=== PATIENT | male | born 1950 | race Caucasian/White ===

== ENCOUNTER 2019-06-21 12:39 | Inpatient (IN) | payer MEDICARE, OTHER ==
[2019-06-21] VITALS (17 sets, daily range): BP systolic 87–180; BP diastolic 58–143
[~2019-06-21] VITALS: Ht 172.7 cm; Wt 87.5 kg
[~2019-06-21 12:39] MED LIST: LISINOPRIL-HCT1 EAC1 PO; LOPRESSOR; LOVASTATIN; NORCO 5-325 TA1 EACH PO
[2019-06-21 13:05] LABS: ABSOLUTE BASOPHILS 0.1 thou/uL (0.0-0.2); ABSOLUTE EOSINOPHILS 0.1 thou/uL (0.0-0.7); ABSOLUTE LYMPHOCYTES 1.8 thou/uL (0.8-5.3); ABSOLUTE MONOCYTES 0.7 thou/uL (0.0-1.2); ABSOLUTE NEUTROPHILS 7.3 thou/uL (1.6-8.1); EOSINOPHILS 0.7 %; HEMATOCRIT 50.1 % (42.0-52.0); HEMOGLOBIN 16.9 gm/dL (14.0-18.0); LYMPHOCYTES 18.4 %; MCH 29.4 pg (26.0-34.0); MCHC 33.7 g/dL (28.0-37.0); MCV 87.2 fL (80.0-100.0); MPV 9.6 fl. (7.2-11.1); NUCLEATED RBCS 0 /100WBC; PLATELET COUNT* 208 thou/uL (150-400); POLYS 72.9 %; RBC 5.75 mil/uL (4.50-6.00)
[2019-06-21] MEDS ORDERED: FLAX SEED OIL1000 MG PO (13:14)
[2019-06-21 13:15] LABS: CALCIUM 9.5 mg/dL (8.5-10.1); CREATININE 1.4 mg/dL (0.6-1.3); POTASSIUM 4.3 mmol/L (3.5-5.1); PROTIME 10.7 Seconds (9.20-11.50)
[2019-06-21] MEDS ORDERED: FISH OIL 1,0001 EAC9 PO (13:15)
[2019-06-21] MEDS ORDERED: VITAMIN D310 MC2 PO (13:15)
[2019-06-21] MEDS ORDERED: ASA81BEC PO (13:15)
[2019-06-21 13:26] LABS: MAGNESIUM 1.6 mg/dL (1.8-2.4); TOTAL BILIRUBIN 1.6 mg/dL (<0.1-1.0); TOTAL PROTEIN 7.6 g/dL (6.4-8.2)
[2019-06-21] MEDS ORDERED: GRAPESEED1 ML PO (15:48)
--- NOTE | 2019-06-21 17:17 | CARD ---
[address] [address] CARDIAC CATH REPORT Name: DAMEONZANECECILLE Gutiérrez Room: [address] ADM IN M.R.#: [id number] Admission: 06/21/19 Attend Phys: Kyle Bai MD, F Discharge: Date of : 54 Report #: [id number] THIS REPORT FOR: //name// cc: Finn Johnson Steve T. DO ~ APPROVED REPORT Study performed: 06/21/2019 13:00:56 Patient Details Patient Status: ED Room #: The patient is a 68 year-old male Event Personnel Kyle Bai Safe And Vault Installer, Brenna Patrick RN Security Trainer, aJn Vazquez RN Security Trainer, Shravan Vega Kramer, Jessie RTR Monitor Procedures Performed Art Access - R femoral artery ATTILA Revasc AMI Total/Sub Single LAD ATTILA Revasc AMI Total/Sub Addl DIAG 1 Hemostasis w/ Angioseal Indication Abnormal ECG, STEMI (>0 to less than or equal to 6 hours), Chest pain Risk Factors Arterial Hypertension, Hypercholesterolemia, Diabetes Admission/Lab Medications/Medications given during procedure Glycoprotein IllbIlla Inhibitors, Heparin Unfract. Procedure Narrative The patient was brought emergently to the Cardiac Catheterization Laboratory and was prepped and draped in a sterile manner. The right femoral was infiltrated with 2% Lidocaine subcutaneous anesthesia. A Bowlus 6 FR sheath was inserted into the right femoral artery. Coronary angiography was performed using coronary diagnostic catheters. The right coronary system was accessed and visualized with a Diagnostic 6 Fr JR 4 catheter. The left coronary system was accessed and visualized with a Diagnostic 6 Fr JL 4 catheter. The left ventricle was accessed and visualized with a Diagnostic 6 Fr Pigtail catheter. Left ventricular/[place] [address] CARDIAC CATH REPORT Name: CECILLE BRADLEY Marla Room: [address] IN [facility]#: [id number] Admission: 06/21/19 Attend Phys: Kyle Bai MD, F Discharge: Date of : 54 Report #: [id number] catheter pullback. Left ventriculogram was performed in AMIN projection. Closure device was deployed with a 6 Fr Angioseal STS 6Fr. The patient tolerated the procedure well and there were no complications associated with the procedure. There was no hematoma. Attempted procedure from the right radial artery. Arterial blood was obtained, but unable to advance guiide wire. Decided to proceed from the right femoral artery. Intraoperative Conscious Sedation Sedation start time: 14:11 Case end Time: 14:39 Fentanyl 50 mcg Versed 2 mg Fluoro Time: 7.7 minutes Dose: DAP 940331 cGycm2 2348 mGy Contrast Type and Amount: Visipaque 215 ml Coronary Angiography The patient's coronary anatomy is right dominant. Diagnostic Cath Left Main 0% stenosis LAD 90% mid stenosis, with a more distal 60% stenosis noted in the mid lad Diagonal 1 100% occluded Circumflex 90% ostial stenosis OM2 60% proximal stenosis Right Coronary 30% mid stenosis R PDA 60% proximal stenosis Ramus small vessel with 90% proximal stenosis noted Left Ventriculography The left ventricular ejection fraction is estimated to be 40-45%. Left ventricular wall motion abnormalities are present. There is 1+ mitral insufficiency. severe hypokinesis noted of the distal anterolateral wall Hemodynamics The aortic pressure is 147/72 mmHg with a mean of 105 mmHg. The left ventricular pressure is 138/10 mmHg with a mean of mmHg. The left ventricular end diastolic pressure is 19 mmHg. There was no gradient across the aortic valve upon pullback. Pullback from the left ventricle to the aorta revealed no gradient across the aortic valve[place] [address] CARDIAC CATH REPORT Name: CECILLE BRADLEY Room: [address] IN [facility]#: [id number] Admission: 06/21/19 Attend Phys: Kyle Bai MD, F Discharge: Date of : 54 Report #: [id number] Anticoagulation was achieved with Heparin. bolus of iv aggrastat given Percutaneous coronary intervention was performed on the first diagnonal branch segment. The lesion stenosis prior to intervention was 100% with MIKE 0 flow. A 6FR XB LAD 3.0 100CM Guide Catheter was used to engage the lm ostium. A IG: BMW 190cm Interventional Guidewire was used to cross the lesion. BALLOON DILATION A Balloon catheter Trek RX 2.5 X 8 was inserted and inflated up to 8.00atm for 15seconds. Repeat angiography revealed the following post-dilatation results: 50% stenosis. IC adenosine given for slow reflow STENT DEPLOYMENT A drug-eluting stent Rg RX Stent 2.5X18mm was inserted and inflated up to 8.00atm for 13seconds. Repeat angiography revealed the following post-stent deployment results: 0% stenosis. Additional Inflation: 8.00atm for 6seconds. Additional Inflation: 9.00atm for 14seconds. A drug- eluting stent Gr RX Stent 2.5 x 8mm was inserted and inflated up to 10 jacinta for 17 seconds and 10 jacinta for 4 seconds. POST STENT DEPLOYMENT BALLOON DILATION 90% stenosis was noted proximal to the stent. A second 8 mm x 2.5 drug eluting stent was placed proximally so that there was minimal overlap between this stent and the more distal stent. Final angiography reveals 0 % stenosis with MIKE 3 flow. PCI Technique Lesion 2 Percutaneous Coronary Intervention was performed on the mid left anterior descending artery segment. Percutaneous coronary intervention was performed on the mid left anterior descending artery segment. The lesion stenosis prior to intervention was 90% with MIKE 3 flow. A 6FR XB LAD 3.0 100CM Guide Catheter was used to engage the left ostium. A IG: BMW 190cm Interventional Guidewire was used to cross the lesion. Balloon Dilation A Balloon catheter Trek RX 2.5 X 8 was inserted and inflated up to 10.00atm for 15seconds. Repeat angiography revealed the following post-dilatation results: 30% stenosis. Stent Deployment A drug-eluting stent Rufus RX Stent 2.66J12mz was inserted and inflated up to 8.00atm for 7seconds. [place] [address] CARDIAC CATH REPORT Name: CECILLE BRADLEY Room: 002-P ADM IN M.Luis Fernando.#: [id number] Admission: 06/21/19 Attend Phys: Kyle Bai MD, F Discharge: Date of : 54 Report #: [id number] following post-stent deployment results: 0% stenosis. Additional Inflation: 12.00atm for 14seconds. Additional Inflation: 15.00atm for 8seconds. Final angiography reveals 0 % stenosis with MIKE 3 flow. Conclusion 1. acute occlusion of the first diagonal branch of the LAD. 2. 90% stenosis of the mid lad and ostial circumflex artery. 3. successful placement of 2 drug eluting stents in the diagonal branch, and one in the mid LAD 4. LVEF 40-45% Recommendations plan elective stenting of the ostium of the circumflex artery at a later date Medications Administered Clopidogrel <ELECTRONICALLY SIGNED> By: Kyle Bai MD, [facility] 06/21/19 1715 14 14Damaricruz Bai MD, FACC /INF
[2019-06-21] MEDS ORDERED: TOPROL XL25 MG PO (19:08)
[2019-06-21] MEDS ORDERED: LIPITOR 40 MG T40 M1 PO (19:08)
--- NOTE | 2019-06-21 19:43 | NUR ---
PATIENT VSS STABLE, PAIN UNDER CONTROL, RIGHT GROIN AND RADIAL SITE C/D/I. PATIENT VERY NON-COMPLIANT WITH MEDICATION AND DIABETES MANAGMENT. EDUCATED ON IMPORTANCE OF TAKING BLOOD PRESSURE MEDICATIONS, CHOLESTEROL, NEW BLOOD THINNER MEDICATION FOR STENTS, AND INFORMED HIM HE WILL MOST LIKELY GO HOME ON DIABETIC MEDICATION AND THAT IT IS EXTREMLY IMPORTANT FOR HIM TO FOLLOW PHYSICIAN ORDERS PER MEDICATION REGIMEN. PATIENT VOICED UNDERSTANDING OF EDUCATION BUT MADE JOKES AT THE SAME TIME. UNSURE OF RECEPTIVENESS TO EDUCATION. BED IN LOWEST POSITION, CALL LIGHT IN REACH, CODING AND REIMBURSEMENT SPECIALIST IN PLACE.
[2019-06-22] VITALS (19 sets, daily range): BP systolic 111–171; BP diastolic 67–99
[2019-06-22 03:04] LABS: HEMATOCRIT 45.2 % (42.0-52.0); HEMOGLOBIN 15.4 gm/dL (14.0-18.0); MCH 29.2 pg (26.0-34.0); MCHC 34.1 g/dL (28.0-37.0); MCV 85.7 fL (80.0-100.0); MPV 9.6 fl. (7.2-11.1); RBC 5.28 mil/uL (4.50-6.00); RDW-CV 14.1 % (10.5-14.5); WBC 11.3 thou/uL (4.0-11.0)
[2019-06-22 03:40] LABS: CALCIUM 9.6 mg/dL (8.5-10.1); CREATININE 1.1 mg/dL (0.6-1.3)
[2019-06-22 04:23] LABS: TROPONIN-I LEVEL 92.8 ng/mL (<0.06)
--- NOTE | 2019-06-22 04:25 | NUR ---
ASSUMED CARE AT 1900H, ON RA THEN PUT ON NC AT 2LPM WHEN PT HAVING CHEST PAIN RATED 4. NITRO PRN GIVEN 2X AND CHEST PAIN RELEAVED, NO CHANGES IN THE MONITOR. NO BLEEDING NOTED. STILL WITH CHEST PAIN RATE OF 1 ONLY. CONTINUE MONITORING AND TOWARD GOALS.
--- NOTE | 2019-06-22 11:32 | NUR ---
ICU rounds: Back to lab technologist tomorrow for another stent. Spoke with . Pt is A&O. Resides at home. Independent. No DME. No hx of HH or SNF. [place] [facility]. Following.
--- NOTE | 2019-06-22 14:32 | H ---
[address] [address] HISTORY AND PHYSICAL Name: CECILLE BRADLEY Room: [address] ADM IN M.R.#: [id number] Admission: 06/21/19 Attend Phys: Kyle Bai MD, F Discharge: Date of : 54 Report #: [id number] THIS REPORT FOR: //name// cc: Finn Johnson Steve T. DO ~ THIS REPORT FOR: //name// CC: Kyle Johnson DO DATE OF SERVICE: 06/21/2019 CARDIOLOGY HISTORY AND PHYSICAL HISTORY OF PRESENT ILLNESS: The patient is a 68-year-old white male who I was asked to see in the Emergency Room after he complained of chest pain. The patient notes when he was 40 years old. He had a heart catheterization in [place] and was told there was no significant heart disease. He is not very active, but today, he was raking leaves, he felt a sharp pain in his chest and his arm, became diaphoretic, nausea and vomited. He had some belching. He denied the pain being related to any trauma. Denied any pain being related to lifting. He has had no recent bleeding, fever or cough. There is no rash. He called the paramedics who brought him to [facility] by ambulance. Here, the pain is still there. He denies exertional dyspnea, palpitations or syncope. PAST MEDICAL HISTORY: Cholecystectomy, hypertension, glucose intolerance, and hyperlipidemia. MEDICATIONS: His medications, which he is not taking this time include lovastatin, lisinopril, metoprolol. He does take an aspirin a day. ALLERGIES: He has no known drug allergies. FAMILY HISTORY: Negative for heart disease. SOCIAL HISTORY: He is . He and his live in [place], [place]. 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 REVIEW OF SYSTEMS: No history of stroke, asthma, liver disease, kidney disease, cancer, psychiatric illness, chronic skin condition. PHYSICAL EXAMINATION: GENERAL: Revealed an elderly male, appeared in no distress. VITAL SIGNS: Blood pressure was 140/80, pulse is 80. HEENT: He was anicteric. Conjunctivae are pink. [place] [address] HISTORY AND PHYSICAL Name: CECILLE BRADLEY Room: [address]#: [id number] Admission: 06/21/19 Attend Phys: Kyle Bai MD, F Discharge: Date of : 54 Report #: [id number] NECK: Veins nondistended. No carotid bruits. CHEST: Clear to auscultation. CARDIOVASCULAR: Regular rate and rhythm, no murmur. ABDOMEN: Soft. EXTREMITIES: Had no edema. Posterior pulse 2+ bilaterally. SKIN: Cool and dry. NEUROLOGIC: Nonfocal. His ECG that was done by the paramedics showed a sinus rhythm with ST segment elevation in leads 1 and aVL. His ECG done stat on arrival to the Emergency Room at [facility] showed a normal sinus rhythm with early repolarization. There is no chest x-ray or lab work available at this time. IMPRESSION AND RECOMMENDATIONS: 1. Possible acute coronary syndrome. Recommend urgent cardiac catheterization. 2. Hypertension. The patient takes lisinopril, metoprolol as needed. 3. Hyperlipidemia. The patient is not taking a statin drug at this time. 4. Glucose intolerance. <ELECTRONICALLY SIGNED> By: Kyle Bai MD, FACC 06/22/19 1432 1323 [id number] Bai MD, FACC /nt
--- NOTE | 2019-06-22 14:52 | NUR ---
PATIENT REMAINS A&O X 4, PLEASANT AND COOPERATIVE WITH CARES. DENIES PAIN, CP, OR SOA. LEFT GROING SITE WITH BRUISING BUT NO HEMATOMA OR BRUIE. RIGHT RADIAL SITE C/D/I. GOOD APPETITE. ADEQUATE URINE OUTPUT. ORDER RECEIVED FOR TELE. PLAN FOR ANOTHER STENT IN THE AM AROUND [address] SEYMOUR. NO FURTHER CONCERNS AT THIS TIME. WILL CONTINUE TO MONITOR AND CARE PER PLAN OF CARE.
[2019-06-23] VITALS (14 sets, daily range): BP systolic 112–147; BP diastolic 68–93
[2019-06-23 02:06] LABS: GLYCOHEMOGLOBIN (HGB A1C) 10.8 % (4.8-5.6)
--- NOTE | 2019-06-23 06:15 | NUR ---
PATIENT SLEPT MOST OF THE NIGHT. IV REMAINS SALINE LOCKED. PATIENT HAS BEEN NPO FOR CARDIAC CATH TODAY. PATIENT HAD NO COMPLAINTS OF CHEST PAIN. WILL CONTINUE TO MONITOR.
--- NOTE | 2019-06-23 11:10 | CARD ---
[address] [address] CARDIAC CATH REPORT Name: CECILLE BRADLEY Marla Room: [place] [address] ADM IN .R.#: [id number] Admission: 06/21/19 Attend Phys: Kyle Bai MD, F Discharge: Date of : 54 Report #: [id number] THIS REPORT FOR: //name// cc: Finn Johnson Steve T. DO ~ APPROVED REPORT Study performed: 06/23/2019 08:38:07 Patient Details Patient Status: In-Patient Room #: The patient is a 68 year-old male Event Personnel Kyle Bai Property Staff Accountant, Brenna Patrick RN RN, Jan Vazquez RN RN, Shravan Vega Kramer, Jessie RTR Monitor Procedures Performed Art Access - L femoral artery Coronary Angiography Only ATTILA Place w/wo Plasty Single CIRC Hemostasis w/ Angioseal Indication STEMI , Chest pain Risk Factors Arterial Hypertension, Hypercholesterolemia, Diabetes Previous Procedures/Diagnoses Previous PCI, Previous AR Admission/Lab Medications/Medications given during procedure Heparin Unfract. Procedure Narrative The patient was brought electively to the Cardiac Catheterization Laboratory and was prepped and draped in a sterile manner. The left femoral was infiltrated with 2% Lidocaine subcutaneous anesthesia. A Chapin 6 FR sheath was inserted into the left femoral artery. Coronary angiography was performed using coronary diagnostic catheters. The left coronary system was accessed and visualized with a Guide 6F XB LAD 3.5 catheter. Closure device was deployed with a 6 Fr Angioseal STS 6Fr. The patient tolerated the procedure well and there were no complications associated with the procedure. [place] [address] CARDIAC CATH REPORT Name: CECILLE BRADLEY Room: [address] IN [facility]#: [id number] Admission: 06/21/19 Attend Phys: Kyle Bai MD, F Discharge: Date of : 54 Report #: [id number] Intraoperative Conscious Sedation Sedation start time: 09:34 Case end Time: 10:15 Fentanyl 50 mcg Versed 2 mg Fluoro Time: 4.5 minutes Dose: DAP 82152 cGycm2 1042 mGy Contrast Type and Amount: Visipaque 130 ml Coronary Angiography The patient's coronary anatomy is right dominant. Diagnostic Cath Left Main 0% stenosis LAD stent in mid lad had 0% stenosis Diagonal 1 stents in mid diagonal had 0% stenosis Circumflex 90% ostial stenosis noted OM2 60% proximal stenosis noted Right Coronary not visualized on this study Ramus small vessel with 80% proximal stenosis Left Ventriculography Left Ventriculography was not performed. Hemodynamics The aortic pressure is 114/63 mmHg with a mean of 88 mmHg. PCI Technique Lesion Anticoagulation was achieved with Heparin. Patient was preloaded with Plavix. Percutaneous coronary intervention was performed on the proximal circumflex artery segment. The lesion stenosis prior to intervention was 90% with MIKE 3 flow. A 6F XB LAD 3.5 Guide Catheter was used to engage the left ostium. A IG: BMW 190cm Interventional Guidewire was used to cross the lesion. BALLOON DILATION A Balloon catheter Trek RX 3.0 X 8 was inserted and inflated up to 14.00atm for 17seconds. Repeat angiography revealed the following post-dilatation results: 40% stenosis. Additional Inflation: 10.00atm for 7seconds. Second BMW guide wire was placed in the LAD to protect the vessel during PTCA of the circumflex artery as it arose from the left main artery. STENT DEPLOYMENT A drug-eluting stent Ripley RX Stent 3.5X12mm [place] [address] CARDIAC CATH REPORT Name: CECILLE BRADLEY Room: [address] IN [facility].#: [id number] Admission: 06/21/19 Attend Phys: Kyle Bai MD, F Discharge: Date of : 54 Report #: [id number] inflated up to 10.00atm for 12seconds. Repeat angiography revealed the following post-stent deployment results: 0% stenosis. Additional Inflation: 14.00atm for 19seconds. Additional Inflation: 17.00atm for 14seconds. Final angiography reveals 0 % stenosis with MIKE 3 flow. Conclusion 1. no restenosis of stents in the LAD and first diagonal branch 2. 90% stenosis of the ostium of the circumflex artery 3. successful placement of a drug eluting stent in the ostium of the circumflex artery. Recommendations Cardiac Rehabilitation Referral Aggressive Medical Therapy <ELECTRONICALLY SIGNED> By: Kyle Bai MD, [facility] 06/23/19 1109 1109 [id number] Bai MD, FAC /INF
[2019-06-23 12:44] LABS: CHOLESTEROL 198 mg/dL (<200); HDL CHOLESTEROL 44 mg/dL (>40); LDL CHOLESTEROL 143 mg/dL (<100); SERUM ASSESSMENT Clear; TC:HDL 4.5 Ratio (Not establshd); TRIGLYCERIDE 59 mg/dL (<150); VLDL 12 mg/dL (<40)
--- NOTE | 2019-06-23 12:44 | EKG ---
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 06/23/19 1242 1232 1232 Kyle Bai MD, [facility] /EPI
[2019-06-24] VITALS: BP 144/87
[2019-06-24 04:00] VITALS: BP 135/80
[2019-06-24 04:51] LABS: HEMATOCRIT 40.2 % (42.0-52.0); HEMOGLOBIN 13.7 gm/dL (14.0-18.0); MCH 29.3 pg (26.0-34.0); MCHC 34.1 g/dL (28.0-37.0); MCV 85.9 fL (80.0-100.0); MPV 9.5 fl. (7.2-11.1); RBC 4.68 mil/uL (4.50-6.00); RDW-CV 13.5 % (10.5-14.5); WBC 8.3 thou/uL (4.0-11.0)
[2019-06-24 04:58] LABS: CALCIUM 7.9 mg/dL (8.5-10.1); POTASSIUM 3.7 mmol/L (3.5-5.1)
--- NOTE | 2019-06-24 07:46 | NUR ---
PATIENT SLEPT MOST OF THE NIGHT. LEFT GROIN SITE FROM CARDIAC CATH YESTERDAY HAS A LARGE HEMATOMA AND IS BRUISED SITE IS OUTLINED IN MARKER. DRESSING WAS CHANGED LAST NIGHT AND REMAINS DRY AND INTACT. IV REMAINS SALINE LOCKED. PATIENT COULD POSSIBLY GOING HOME TODAY. WILL CONTINUE TO MONITOR.
--- NOTE | 2019-06-24 08:46 | D ---
[address] [address] DISCHARGE SUMMARY Name: CECILLE BRADLEY Room: [place] [address] ADM IN M.R.#: [id number] Admission: 06/21/19 Attend Phys: Kyle Bai MD, F Discharge: Date of : 54 Report #: [id number] THIS REPORT FOR: //name// cc: Finn Johnson Steve T. DO ~ THIS REPORT FOR: //name// CC: Kyle Johnson DO DATE OF SERVICE: 06/24/2019 DISCHARGE DIAGNOSES: 1. Acute lateral ST segment elevation myocardial infarction. 2. Coronary artery disease. 3. Hypertension. 4. Diabetes. 5. Hyperlipidemia. 6. Left groin hematoma. PROCEDURES: 1. Emergent left heart catheterization with placement of drug-eluting stents in the diagonal and LAD artery via the femoral approach. 2. Left heart catheterization with placement of a drug-eluting stent in the circumflex artery via the left femoral approach. HISTORY OF PRESENT ILLNESS: The patient is a 68-year-old white male who came to the Emergency Room complaining of shortness of breath. The patient has no previous history of heart disease. On the day of admission, he was out raking leaves, he felt a pain in his chest, became diaphoretic, nauseated and vomited. He had no recent fever, cough, or bleeding. He called the paramedics who brought him here to [facility] by ambulance. On arrival here, he continued to have chest pain. I saw him on an emergent basis. PAST MEDICAL HISTORY: Significant for cholecystectomy, hypertension, diabetes, and hyperlipidemia. MEDICATIONS: His medications in the past included lovastatin, lisinopril, metoprolol, and aspirin a day, although he notes he is not taking any medications at this time. ALLERGIES: He has no known drug allergies. PHYSICAL EXAMINATION: VITAL SIGNS: On admission, blood pressure of 140/80 [place] [address] DISCHARGE SUMMARY Name: CECILLE BRADLEY Marla Room: [address] IN [facility].#: [id number] Admission: 06/21/19 Attend Phys: Kyle Bai MD, F Discharge: Date of : 54 Report #: [id number] CHEST: Clear to auscultation. CARDIAC: Regular rate and rhythm. ABDOMEN: Soft. EXTREMITIES: Had no edema. DIAGNOSTIC DATA: ECG showed sinus rhythm, ST segment elevation in 1 and aVL consistent with a high lateral ST segment elevation myocardial infarction. His chest x-ray on admission showed normal heart size, clear lung marte. LABORATORY DATA: Sodium 139, potassium 4.3, BUN 19, creatinine 1.4, and glucose is 415. His liver function studies were normal. Troponin on admission was 0.06. His cholesterol 198, triglycerides 59, HDL 44, LDL 143, glycosylated hemoglobin A1c was 10.8. His white blood cell count was 10.0 and hemoglobin 16.9. HOSPITAL COURSE: The patient was taken urgently to the cardiac catheterization lab with evidence of a lateral ST elevation myocardial infarction. The procedure was performed from the right femoral artery. Results showed an acute occlusion of the medium-sized first diagonal branch of the LAD. There was a 90% narrowing of the mid LAD. There was also 90% narrowing of the ostium of the circumflex artery. The right coronary had no significant disease. Ejection fraction of 40-45%. He was then given heparin and Integrilin. I placed drug-eluting stents in the diagonal artery and LAD. He had no significant chest pain at that time. He had no significant hematoma in the right groin. He developed no heart failure or arrhythmias. He began to ambulate, had no further complaints. He was transferred out of the ICU. He was taken back to the cardiac catheterization lab 2 days later, on 06/22, and I electively placed a drug-eluting stent in the ostium of the circumflex artery. This was performed from the left femoral artery since he previously had an Angio-Seal in the right femoral artery. The procedure had no complications. However, after the procedure, he did develop a hematoma in the left groin area. Prior to discharge, he was ambulating, he had no further chest pain, shortness of breath, or arrhythmias. Prior to discharge, he did undergo an ultrasound of the left femoral hematoma to make sure there was no pseudoaneurysm or AV fistula. At the time of discharge, the patient's blood pressure was 130/80, pulse was 80, he was afebrile, and he remained in sinus rhythm. At the time of discharge, his fasting blood sugar was 203. Followup creatinine following the procedure was 1.0. His peak troponin was 112. Followup hemoglobin was 13.7. The patient was discharged on the following medications: Aspirin 81 mg a day and Lipitor 40 mg a day aiming for an LDL less than 70. He was to continue vitamin D and flaxseed oil. He was started on glyburide 5 mg a day for his diabetes. He was started back on lisinopril/HCTZ 12.5/20 mg a day, metoprolol succinate 25 mg twice a day, omega 3 fatty acids and he was given Plavix 75 mg a day, which he would take for up to 1 year following placement of drug-eluting stents. He was given a prescription for nitroglycerin [place] [address] DISCHARGE SUMMARY Name: CECILLE BRADLEY Room: [address] IN R.#: [id number] Admission: 06/21/19 Attend Phys: Kyle Bai MD, F Discharge: Date of : 54 Report #: [id number] chest pain. He was discharged to return to the care of Dr. Johnson for management of his diabetes. I did recommend he enroll with cardiac rehabilitation here at [facility]. I recommend he start an exercise program. He was to contact my office if he had recurrent chest pain, shortness of breath, or bleeding. He is scheduled to return to see my nurse practitioner in 1 week. I plan on seeing him in Cardiology Clinic in 8 weeks for followup. Followup ECG at the time of discharge showed a sinus rhythm with Q-waves in 1 and aVL. <ELECTRONICALLY SIGNED> By: Kyle Bai MD, FACC 06/24/19 0846 0811 [id number] Bai MD, FACC /nt
--- NOTE | 2019-06-24 09:57 | EKG ---
[place] [address] ELECTROCARDIOGRAM REPORT Name: CECILLE BRADLEY Room: [place] [address] ADM IN .R.#: [id number] Admission: 06/21/19 Attend Phys: Kyle Bai MD Discharge: Date of : 54 Date of Service: 06/24/19805 Report #: [id number] THIS REPORT FOR: //name// [facility] Test Date: 2019-06-24 Test Time: 08:06:30 Pat Name: CECILLE BRADLEY Department: Room: [place] [address] Gender: M Launch Manager: H : 1950 Requested By: Kyle Bai Order Number: [id number] Sheryl MD: Kyle Bai Measurements Intervals [place] Rate: 82 P: 36 TN: 141 QRS: 50 QRSD: 103 T: 85 QT: 391 QTc: 457 Interpretive Statements Sinus rhythm early repolarization Compared to ECG 06/23/2019 12:32:58 no change Electronically Signed On 06-24-2019 9:56:29 CDT by Kyle Bai [email or web address] <ELECTRONICALLY SIGNED> By: Kyle Bai MD, [facility] [birth year]/1956 5 5 Kyle Bai MD, [facility] /EPI
[2019-06-24 11:40] VITALS: BP 118/83
[2019-06-24 11:58] VITALS: BP 118/83
[2019-06-24 12:00] VITALS: BP 131/72
[2019-06-24] MEDS ORDERED: PLAVIX 75 MG TA75 MG PO (13:25)
[2019-06-24] MEDS ORDERED: GLYBURIDE 5 MG T5 M1 PO (13:26)
[2019-06-24] MEDS ORDERED: NITROGLYCERIN0.4 MG SUBLING (13:29)
--- NOTE | 2019-06-25 12:24 | EKG ---
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
--- NOTE | 2019-06-25 12:24 | EKG ---
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
--- NOTE | 2019-06-25 12:25 | EKG ---
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1950 Requested By: Kyle Bai Order Number: [id number] Sheryl MD: Byron Corona Measurements Intervals [place] Rate: 73 P: 47 MN: 154 QRS: 51 QRSD: 98 T: 84 QT: 395 QTc: 436 Interpretive Statements Sinus rhythm Probable left atrial enlargement Probable anteroseptal infarct, recent Compared to ECG 06/21/2019 15:27:32 No significant changes Electronically Signed On 06-22-2019 11:03:47 CDT by Byron Corona [email or web address] <ELECTRONICALLY SIGNED> By: Byron Corona MD, FACC 06/22/19 1103 0510 0510 Byron Corona MD, [facility] /EPI
== END 2019-06-24 14:20 | disposition home or self-care (01) | DRG 246 ==
LOC: M.ERS 12:39 → M.CL 12:39 → M.ICU 13:21 → M.TBA-CV 13:21 → M.ICU 15:10 → M.2W 06-22 18:03
PROVIDERS: Emergency Medicine Emergency Medical Services; ADMIT Internal Medicine Cardiovascular Disease
PROC: 4A023N7 Measurement of Cardiac Sampling and Pressure, Left Heart, Percutaneous Approach (ICD-10-PCS; principal; 2019-06-21)
PROC: B211YZZ Fluoroscopy of Multiple Coronary Arteries using Other Contrast (ICD-10-PCS; principal; 2019-06-21)
PROC: 027135Z Dilation of Coronary Artery, Two Arteries with Two Drug-eluting Intraluminal Devices, Percutaneous Approach (ICD-10-PCS; principal; 2019-06-21)
PROC: B215YZZ Fluoroscopy of Left Heart using Other Contrast (ICD-10-PCS; principal; 2019-06-21)
PROC: B211YZZ Fluoroscopy of Multiple Coronary Arteries using Other Contrast (ICD-10-PCS; 2019-06-23)
PROC: 4A023N7 Measurement of Cardiac Sampling and Pressure, Left Heart, Percutaneous Approach (ICD-10-PCS; 2019-06-23)
PROC: 027034Z Dilation of Coronary Artery, One Artery with Drug-eluting Intraluminal Device, Percutaneous Approach (ICD-10-PCS; 2019-06-23)
DX: I21.29 ST elevation (STEMI) myocardial infarction involving other sites (principal); I50.33 Acute on chronic diastolic (congestive) heart failure; I11.0 Hypertensive heart disease with heart failure; I25.10 Atherosclerotic heart disease of native coronary artery without angina pectoris; E78.5 Hyperlipidemia, unspecified; E11.9 Type 2 diabetes mellitus without complications; E78.00 Pure hypercholesterolemia, unspecified; Z90.49 Acquired absence of other specified parts of digestive tract; Z79.82 Long term (current) use of aspirin; Z79.899 Other long term (current) drug therapy; S30.1XXA Contusion of abdominal wall, initial encounter; Y92.238 Other place in hospital as the place of occurrence of the external cause; Y84.8 Other medical procedures as the cause of abnormal reaction of the patient, or of later complication, without mention of misadventure at the time of the procedure; Y93.89 Activity, other specified; Y99.8 Other external cause status

== ENCOUNTER 2021-03-01 10:13 | Inpatient (IN) | payer MEDICARE, OTHER ==
[~2021-03-01] VITALS: Ht 172.7 cm; Wt 81.2 kg
[~2021-03-01 10:13] MED LIST changes: +ASA81BEC PO; +FISH OIL 1,0001 EAC9 PO; +FLAX SEED OIL1000 MG PO; +GLYBURIDE 5 MG T5 M1 PO; +GRAPESEED1 ML PO; +LIPITOR 40 MG T40 M1 PO; +NITROGLYCERIN0.4 MG SUBLING; +PLAVIX 75 MG TA75 MG PO; +TOPROL XL25 MG PO; +VITAMIN D310 MC2 PO
[2021-03-01 10:14] VITALS: BP 114/62
[2021-03-01 11:21] LABS: HEMATOCRIT 41.2 % (42.0-52.0); HEMOGLOBIN 13.9 gm/dL (14.0-18.0); MCH 29.5 pg (26.0-34.0); MCHC 33.8 g/dL (28.0-37.0); MCV 87.3 fL (80.0-100.0); MPV 8.2 fl. (7.2-11.1); NUCLEATED RBCS 0 /100WBC; PLATELET COUNT* 281 thou/uL (150-400); RBC 4.72 mil/uL (4.50-6.00); RDW-CV 13.6 % (10.5-14.5); WBC 6.4 thou/uL (4.0-11.0)
[2021-03-01 11:29] LABS: CALCIUM 7.8 mg/dL (8.5-10.1); CREATININE 1.7 mg/dL (0.6-1.3); POTASSIUM 4.3 mmol/L (3.5-5.1)
[2021-03-01 11:33] LABS: ALBUMIN 2.4 g/dL (3.4-5.0); TOTAL PROTEIN 6.5 g/dL (6.4-8.2)
--- NOTE | 2021-03-01 11:56 | EKG ---
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 03/01/21 1156 1021 1021 Maxx Smith MD, [facility] /EPI
[2021-03-01 12:04] LABS: ABSOLUTE LYMPHOCYTES 0.2 thou/uL (0.8-5.3); ABSOLUTE MONOCYTES 0.6 thou/uL (0.0-1.2); ABSOLUTE NEUTROPHILS 5.6 thou/uL (1.6-8.1); PLATELET ESTIMATE ADEQUATE
[2021-03-01 18:01] VITALS: BP 105/69
[2021-03-01 20:00] VITALS: BP 116/67
[2021-03-02 01:25] VITALS: BP 104/64
[2021-03-02 05:44] VITALS: BP 126/63
[2021-03-02 08:00] VITALS: BP 127/76
[2021-03-02 16:00] VITALS: BP 105/52
[2021-03-02 20:23] VITALS: BP 123/68
[2021-03-03] VITALS (7 sets, daily range): BP systolic 109–149; BP diastolic 56–87
[2021-03-03 13:17] LABS: ABSOLUTE LYMPHOCYTES 0.2 thou/uL (0.8-5.3); ABSOLUTE MONOCYTES 0.4 thou/uL (0.0-1.2); ABSOLUTE NEUTROPHILS 8.7 thou/uL (1.6-8.1); BASOPHILS 0.1 %; HEMATOCRIT 42.7 % (42.0-52.0); HEMOGLOBIN 14.3 gm/dL (14.0-18.0); LYMPHOCYTES 2.5 %; MCH 30.3 pg (26.0-34.0); MCHC 33.6 g/dL (28.0-37.0); MCV 90.1 fL (80.0-100.0); MONOCYTES 4.8 %; MPV 8.8 fl. (7.2-11.1); NUCLEATED RBCS 0 /100WBC; PLATELET COUNT* 285 thou/uL (150-400); POLYS 92.6 %; RBC 4.74 mil/uL (4.50-6.00); RDW-CV 14.1 % (10.5-14.5); WBC 9.4 thou/uL (4.0-11.0)
[2021-03-03 13:26] LABS: CALCIUM 7.7 mg/dL (8.5-10.1); CREATININE 1.4 mg/dL (0.6-1.3); POTASSIUM 4.7 mmol/L (3.5-5.1)
[2021-03-03 13:55] LABS: MAGNESIUM 2.4 mg/dL (1.8-2.4)
[2021-03-04 04:00] VITALS: BP 117/51
[2021-03-04 08:00] VITALS: BP 139/83
[2021-03-04 12:00] VITALS: BP 143/81
[2021-03-04 13:22] LABS: CALCIUM 7.7 mg/dL (8.5-10.1); CREATININE 1.1 mg/dL (0.6-1.3); POTASSIUM 4.6 mmol/L (3.5-5.1)
[2021-03-04 16:00] VITALS: BP 130/79
[2021-03-04 21:30] VITALS: BP 120/87
[2021-03-05] VITALS (7 sets, daily range): BP systolic 135–167; BP diastolic 66–95
[2021-03-05 05:09] LABS: HEMATOCRIT 38.4 % (42.0-52.0); HEMOGLOBIN 13.2 gm/dL (14.0-18.0); MCH 31.3 pg (26.0-34.0); MCHC 34.4 g/dL (28.0-37.0); MCV 90.9 fL (80.0-100.0); MPV 8.4 fl. (7.2-11.1); RBC 4.23 mil/uL (4.50-6.00); RDW-CV 14.2 % (10.5-14.5); WBC 10.5 thou/uL (4.0-11.0)
[2021-03-05 06:47] LABS: ALBUMIN 2.1 g/dL (3.4-5.0); CALCIUM 7.8 mg/dL (8.5-10.1); CREATININE 1.2 mg/dL (0.6-1.3); MAGNESIUM 2.1 mg/dL (1.8-2.4); POTASSIUM 4.4 mmol/L (3.5-5.1); TOTAL BILIRUBIN 1.1 mg/dL (<0.1-1.0); TOTAL PROTEIN 4.8 g/dL (6.4-8.2)
[2021-03-06] VITALS: BP 120/79
[2021-03-06 08:10] VITALS: BP 147/88
[2021-03-06 12:00] VITALS: BP 142/82
[2021-03-06 16:00] VITALS: BP 140/86
[2021-03-06 20:00] VITALS: BP 132/70
[2021-03-07] VITALS: BP 147/81
[2021-03-07 07:27] LABS: ALBUMIN 2.1 g/dL (3.4-5.0); CALCIUM 7.7 mg/dL (8.5-10.1); CREATININE 1.4 mg/dL (0.6-1.3); TOTAL BILIRUBIN 1.5 mg/dL (<0.1-1.0); TOTAL PROTEIN 5.5 g/dL (6.4-8.2)
[2021-03-07 07:47] LABS: HEMOGLOBIN 14.2 gm/dL (14.0-18.0); MCH 30.8 pg (26.0-34.0); MCHC 33.9 g/dL (28.0-37.0); MCV 90.8 fL (80.0-100.0); NUCLEATED RBCS 0 /100WBC; PLATELET COUNT* 249 thou/uL (150-400); RBC 4.62 mil/uL (4.50-6.00); WBC 9.9 thou/uL (4.0-11.0)
[2021-03-07 08:00] VITALS: BP 133/73
[2021-03-07 08:24] LABS: ABSOLUTE EOSINOPHILS 0.4 thou/uL (0.0-0.7); ABSOLUTE LYMPHOCYTES 0.2 thou/uL (0.8-5.3); ABSOLUTE MONOCYTES 0.5 thou/uL (0.0-1.2); ABSOLUTE NEUTROPHILS 8.8 thou/uL (1.6-8.1)
[2021-03-07 08:25] LABS: GIANT PLATELETS OCCASIONAL
[2021-03-07 08:26] LABS: PLATELET ESTIMATE ADEQUATE
[2021-03-07 12:00] VITALS: BP 138/82
[2021-03-07 16:00] VITALS: BP 133/90
[2021-03-07 19:40] VITALS: BP 129/81
[2021-03-08] VITALS: BP 135/70
[2021-03-08 04:00] VITALS: BP 150/77
[2021-03-08 07:06] LABS: PREALBUMIN 17.1 mg/dL (18.0-35.7)
[2021-03-08 07:11] LABS: ALBUMIN 1.9 g/dL (3.4-5.0); CALCIUM 7.3 mg/dL (8.5-10.1); POTASSIUM 3.8 mmol/L (3.5-5.1); TOTAL BILIRUBIN 1.2 mg/dL (<0.1-1.0); TOTAL PROTEIN 4.8 g/dL (6.4-8.2)
[2021-03-08 08:00] VITALS: BP 124/66
[2021-03-08 08:01] LABS: ABSOLUTE LYMPHOCYTES 0.2 thou/uL (0.8-5.3); ABSOLUTE MONOCYTES 0.3 thou/uL (0.0-1.2); ABSOLUTE NEUTROPHILS 9.7 thou/uL (1.6-8.1); HEMOGLOBIN 13.3 gm/dL (14.0-18.0); LYMPHOCYTES 2.3 %; MCH 30.3 pg (26.0-34.0); MCV 89.1 fL (80.0-100.0); MONOCYTES 2.8 %; MPV 9.2 fl. (7.2-11.1); NUCLEATED RBCS 0 /100WBC; PLATELET COUNT* 201 thou/uL (150-400); POLYS 94.9 %; RBC 4.38 mil/uL (4.50-6.00); WBC 10.2 thou/uL (4.0-11.0)
[2021-03-08 12:00] VITALS: BP 118/76
[2021-03-08 16:00] VITALS: BP 109/75
[2021-03-08 19:45] VITALS: BP 127/75
[2021-03-09] VITALS: BP 133/77
[2021-03-09 04:00] VITALS: BP 120/70
[2021-03-09 06:22] LABS: ABSOLUTE LYMPHOCYTES 0.2 thou/uL (0.8-5.3); ABSOLUTE MONOCYTES 0.3 thou/uL (0.0-1.2); ABSOLUTE NEUTROPHILS 10.3 thou/uL (1.6-8.1); BASOPHILS 0.4 %; HEMATOCRIT 38.7 % (42.0-52.0); HEMOGLOBIN 13.1 gm/dL (14.0-18.0); LYMPHOCYTES 1.8 %; MCH 29.4 pg (26.0-34.0); MCHC 33.8 g/dL (28.0-37.0); MCV 87.1 fL (80.0-100.0); MONOCYTES 2.7 %; MPV 9.2 fl. (7.2-11.1); NUCLEATED RBCS 0 /100WBC; PLATELET COUNT* 182 thou/uL (150-400); POLYS 95.1 %; RBC 4.44 mil/uL (4.50-6.00); RDW-CV 13.6 % (10.5-14.5); WBC 10.8 thou/uL (4.0-11.0)
[2021-03-09 06:54] LABS: PREALBUMIN 20.1 mg/dL (18.0-35.7)
[2021-03-09 06:58] LABS: ALBUMIN 1.9 g/dL (3.4-5.0); CALCIUM 7.8 mg/dL (8.5-10.1); CREATININE 1.1 mg/dL (0.6-1.3); POTASSIUM 3.9 mmol/L (3.5-5.1); TOTAL PROTEIN 4.5 g/dL (6.4-8.2)
[2021-03-09 08:00] VITALS: BP 119/66
[2021-03-09 16:00] VITALS: BP 112/58
[2021-03-09 22:15] VITALS: BP 96/69
[2021-03-10] VITALS: BP 121/68
[2021-03-10 04:28] VITALS: BP 133/78
[2021-03-10 05:08] LABS: ABSOLUTE LYMPHOCYTES 0.2 thou/uL (0.8-5.3); ABSOLUTE MONOCYTES 0.5 thou/uL (0.0-1.2); ABSOLUTE NEUTROPHILS 10.4 thou/uL (1.6-8.1); BASOPHILS 0.2 %; HEMATOCRIT 39.7 % (42.0-52.0); HEMOGLOBIN 13.4 gm/dL (14.0-18.0); LYMPHOCYTES 2.1 %; MCH 29.6 pg (26.0-34.0); MCHC 33.9 g/dL (28.0-37.0); MCV 87.3 fL (80.0-100.0); MONOCYTES 4.1 %; MPV 9.4 fl. (7.2-11.1); NUCLEATED RBCS 0 /100WBC; PLATELET COUNT* 176 thou/uL (150-400); POLYS 93.6 %; RBC 4.55 mil/uL (4.50-6.00); RDW-CV 13.9 % (10.5-14.5); WBC 11.1 thou/uL (4.0-11.0)
[2021-03-10 05:32] LABS: ALBUMIN 2.1 g/dL (3.4-5.0); CALCIUM 7.9 mg/dL (8.5-10.1); CREATININE 1.1 mg/dL (0.6-1.3); POTASSIUM 3.9 mmol/L (3.5-5.1); TOTAL BILIRUBIN 1.2 mg/dL (<0.1-1.0); TOTAL PROTEIN 4.8 g/dL (6.4-8.2)
[2021-03-10 11:00] VITALS: BP 105/78
[2021-03-11] VITALS: BP 143/86
[2021-03-11 04:00] VITALS: BP 136/76
[2021-03-11 06:50] LABS: HEMATOCRIT 38.1 % (42.0-52.0); MCH 29.6 pg (26.0-34.0); MCHC 34.1 g/dL (28.0-37.0); MCV 86.8 fL (80.0-100.0); MPV 9.4 fl. (7.2-11.1); NUCLEATED RBCS 0 /100WBC; PLATELET COUNT* 140 thou/uL (150-400); RBC 4.38 mil/uL (4.50-6.00); RDW-CV 13.8 % (10.5-14.5)
[2021-03-11 07:09] LABS: ALBUMIN 1.9 g/dL (3.4-5.0); CALCIUM 7.7 mg/dL (8.5-10.1); TOTAL BILIRUBIN 1.1 mg/dL (<0.1-1.0); TOTAL PROTEIN 4.5 g/dL (6.4-8.2)
[2021-03-11 07:25] LABS: ABSOLUTE LYMPHOCYTES 0.3 thou/uL (0.8-5.3); ABSOLUTE MONOCYTES 0.4 thou/uL (0.0-1.2); ABSOLUTE NEUTROPHILS 9.3 thou/uL (1.6-8.1)
[2021-03-11 07:26] LABS: PLATELET ESTIMATE ADEQUATE
[2021-03-11 08:35] VITALS: BP 150/66
[2021-03-11 12:48] VITALS: BP 120/69
[2021-03-11 16:54] VITALS: BP 104/65
[2021-03-11 20:00] VITALS: BP 110/62
[2021-03-12 01:59] VITALS: BP 98/60
[2021-03-12 04:53] LABS: ABSOLUTE BASOPHILS 0.1 thou/uL (0.0-0.2); ABSOLUTE LYMPHOCYTES 0.8 thou/uL (0.8-5.3); ABSOLUTE MONOCYTES 0.6 thou/uL (0.0-1.2); ABSOLUTE NEUTROPHILS 9.3 thou/uL (1.6-8.1); BASOPHILS 0.6 %; EOSINOPHILS 0.2 %; HEMATOCRIT 36.5 % (42.0-52.0); HEMOGLOBIN 12.7 gm/dL (14.0-18.0); LYMPHOCYTES 7.2 %; MCH 30.7 pg (26.0-34.0); MCHC 34.8 g/dL (28.0-37.0); MCV 88.2 fL (80.0-100.0); MONOCYTES 5.9 %; MPV 9.9 fl. (7.2-11.1); NUCLEATED RBCS 0 /100WBC; PLATELET COUNT* 124 thou/uL (150-400); POLYS 86.1 %; RBC 4.13 mil/uL (4.50-6.00); RDW-CV 13.8 % (10.5-14.5); WBC 10.8 thou/uL (4.0-11.0)
[2021-03-12 05:20] LABS: CALCIUM 7.5 mg/dL (8.5-10.1); CREATININE 0.9 mg/dL (0.6-1.3); POTASSIUM 3.5 mmol/L (3.5-5.1); TOTAL BILIRUBIN 0.9 mg/dL (<0.1-1.0); TOTAL PROTEIN 4.4 g/dL (6.4-8.2)
[2021-03-12 06:09] VITALS: BP 124/78
[2021-03-12 11:29] VITALS: BP 121/92
[2021-03-12 12:02] VITALS: BP 89/49
[2021-03-12 16:11] VITALS: BP 103/64
[2021-03-12 20:30] VITALS: BP 110/68
[2021-03-13 02:25] VITALS: BP 127/67
[2021-03-13 05:58] LABS: ABSOLUTE LYMPHOCYTES 0.3 thou/uL (0.8-5.3); ABSOLUTE MONOCYTES 0.2 thou/uL (0.0-1.2); BASOPHILS 0.2 %; HEMATOCRIT 35.4 % (42.0-52.0); HEMOGLOBIN 12.5 gm/dL (14.0-18.0); LYMPHOCYTES 3.5 %; MCH 30.7 pg (26.0-34.0); MCHC 35.4 g/dL (28.0-37.0); MCV 86.6 fL (80.0-100.0); MONOCYTES 2.5 %; MPV 9.8 fl. (7.2-11.1); NUCLEATED RBCS 0 /100WBC; PLATELET COUNT* 110 thou/uL (150-400); POLYS 93.8 %; RBC 4.08 mil/uL (4.50-6.00); RDW-CV 13.9 % (10.5-14.5); WBC 9.6 thou/uL (4.0-11.0)
[2021-03-13 06:30] VITALS: BP 112/69
[2021-03-13 07:02] LABS: CALCIUM 7.8 mg/dL (8.5-10.1); CREATININE 0.8 mg/dL (0.6-1.3); POTASSIUM 4.3 mmol/L (3.5-5.1); TOTAL BILIRUBIN 0.9 mg/dL (<0.1-1.0); TOTAL PROTEIN 4.4 g/dL (6.4-8.2)
[2021-03-13 07:55] VITALS: BP 135/61
[2021-03-13 12:25] VITALS: BP 102/62
--- NOTE | 2021-03-13 13:29 | 2DMMODE ---
[place] [address] 2 D/M-MODE ECHOCARDIOGRAM Name: DAMEONZANECECILLE Room: [address] IN [facility]#: [id number] Admission: 03/01/21 Attend Phys: Sarkis Stark Discharge: Date of : 54 Date of Service: 03/13/21 1329 Report #: [id number] THIS REPORT FOR: cc: Finn Johnson Steve T. DO Liston, Michael J. MD [facility] ~ APPROVED REPORT Study performed: 03/13/2021 11:06:39 EXAM: Comprehensive 2D, Doppler, and color-flow Echocardiogram Patient Location: In-Patient Room #: [facility] Status: routine BSA: 2.00 HR: 96 bpm BP: 135/61 mmHg Rhythm: NSR Other Information Study Quality: Good Indications Dyspnea 2D Dimensions IVSd: 12.73 (7-11mm) LVOT Diam: 19.17 (18-24mm) LVDd: 31.21 mm PWd: 11.45 (7-11mm) Ascending Ao: 33.68 (22-36mm) LVDs: 16.85 (25-40mm) Aortic Root: 33.48 mm Volumes Left Atrial Volume (Systole) LA ESV Index: 20.40 mL/m2 Aortic Valve AoV Peak Festus.: 1.39 m/s AO Peak Gr.: 7.77 mmHg LVOT Max P.87 mmHg AO Mean Gr.: 4.53 mmHg LVOT Mean P.12 mmHg LVOT Max V: 1.31 m/s AO V2 VTI: 20.60 cm LVOT Mean V: 0.81 m/s TRACEE (VTI): 3.16 cm2 LVOT V1 VTI: 22.55 [place] [address] 2 D/M-MODE ECHOCARDIOGRAM Name: CECILLE BRADLEY Room: [address]#: [id number] Admission: 03/01/21 Attend Phys: Sarkis Stark Discharge: Date of : 54 Date of Service: 03/13/21 1329 Report #: [id number] Mitral Valve E/A Ratio: 0.77 MV Decel. Time: 244.49 ms MV E Max Festus.: 0.67 m/s MV PHT: 70.90 ms MVA (PHT): 3.10 cm2 TDI E/Lateral E': 6.70 E/Medial E': 8.38 Medial E' Festus.: 0.08 m/s Lateral E' Festus.: 0.10 m/s Pulmonary Valve PV Peak Festus.: 1.10 m/s PV Peak Gr.: 4.81 mmHg Left Ventricle The left ventricle is normal size. There is normal LV segmental wall motion. Mild concentric left ventricular hypertrophy. Left ventricular systolic function is normal. LVEF is 60-65%. Grade I - abnormal relaxation pattern. Right Ventricle The right ventricle is normal size. The right ventricular systolic function is normal. Atria The left atrium size is normal. The right atrium size is normal. Aortic Valve The aortic valve is normal in structure. No aortic regurgitation is present. There is no aortic valvular stenosis. Mitral Valve The mitral valve is normal in structure. There is no mitral valve regurgitation noted. No evidence of mitral valve stenosis. Tricuspid Valve The tricuspid valve is normal in structure. Unable to assess PA pressure. Trace tricuspid regurgitation. Pulmonic Valve The pulmonary valve is normal in structure. Mild pulmonic regurgitation[place] [address] 2 D/M-MODE ECHOCARDIOGRAM Name: CECILLE BRADLEY Room: [address] IN [facility]#: [id number] Admission: 03/01/21 Attend Phys: Sarkis Stark Discharge: Date of : 54 Date of Service: 03/13/21 1329 Report #: [id number] The aortic root is normal in size. IVC is not well visualized. Pericardium There is no pericardial effusion. <Conclusion> The left ventricle is normal size. Mild concentric left ventricular hypertrophy. Left ventricular systolic function is normal. LVEF is 60-65%. Grade I - abnormal relaxation pattern. There is normal LV segmental wall motion. Trace tricuspid regurgitation. <ELECTRONICALLY SIGNED> By: Byron Corona MD, FACC 03/13/211328 28 28 Byron Corona MD, FACC /INF
[2021-03-13 16:00] VITALS: BP 103/60
[2021-03-13 20:00] VITALS: BP 132/78
[2021-03-14 01:46] VITALS: BP 158/82
[2021-03-14 05:33] VITALS: BP 158/82
[2021-03-14 06:21] LABS: ABSOLUTE LYMPHOCYTES 0.6 thou/uL (0.8-5.3); ABSOLUTE MONOCYTES 0.6 thou/uL (0.0-1.2); ABSOLUTE NEUTROPHILS 13.5 thou/uL (1.6-8.1); BASOPHILS 0.2 %; EOSINOPHILS 0.1 %; HEMATOCRIT 39.7 % (42.0-52.0); HEMOGLOBIN 13.6 gm/dL (14.0-18.0); MCH 29.8 pg (26.0-34.0); MCHC 34.2 g/dL (28.0-37.0); MCV 86.9 fL (80.0-100.0); MONOCYTES 3.8 %; MPV 9.7 fl. (7.2-11.1); NUCLEATED RBCS 0 /100WBC; PLATELET COUNT* 136 thou/uL (150-400); POLYS 91.9 %; RBC 4.56 mil/uL (4.50-6.00); RDW-CV 14.1 % (10.5-14.5); WBC 14.7 thou/uL (4.0-11.0)
[2021-03-14 06:32] LABS: ALBUMIN 2.3 g/dL (3.4-5.0); CALCIUM 8.2 mg/dL (8.5-10.1); CREATININE 0.9 mg/dL (0.6-1.3); POTASSIUM 4.2 mmol/L (3.5-5.1); TOTAL BILIRUBIN 1.2 mg/dL (<0.1-1.0); TOTAL PROTEIN 4.8 g/dL (6.4-8.2)
[2021-03-14 08:00] VITALS: BP 132/77
[2021-03-14 12:06] VITALS: BP 106/66
[2021-03-14 16:25] VITALS: BP 121/74
[2021-03-14 20:00] VITALS: BP 94/62
[2021-03-15] VITALS: BP 128/68
[2021-03-15 04:00] VITALS: BP 134/70
[2021-03-15 07:26] LABS: HEMATOCRIT 36.3 % (42.0-52.0); HEMOGLOBIN 12.4 gm/dL (14.0-18.0); MCH 30.1 pg (26.0-34.0); MCHC 34.1 g/dL (28.0-37.0); MCV 88.4 fL (80.0-100.0); MPV 9.9 fl. (7.2-11.1); NUCLEATED RBCS 0 /100WBC; PLATELET COUNT* 105 thou/uL (150-400); RBC 4.11 mil/uL (4.50-6.00); RDW-CV 14.2 % (10.5-14.5); WBC 10.9 thou/uL (4.0-11.0)
[2021-03-15 07:33] LABS: ALBUMIN 2.7 g/dL (3.4-5.0); CALCIUM 8.2 mg/dL (8.5-10.1); CREATININE 0.9 mg/dL (0.6-1.3); POTASSIUM 4.4 mmol/L (3.5-5.1); TOTAL BILIRUBIN 1.6 mg/dL (<0.1-1.0); TOTAL PROTEIN 4.9 g/dL (6.4-8.2)
[2021-03-15 08:00] VITALS: BP 122/77
[2021-03-15 09:06] LABS: ABSOLUTE LYMPHOCYTES 0.3 thou/uL (0.8-5.3); ABSOLUTE MONOCYTES 0.3 thou/uL (0.0-1.2); ABSOLUTE NEUTROPHILS 10.2 thou/uL (1.6-8.1)
[2021-03-15 09:07] LABS: PLATELET ESTIMATE DECREASED
[2021-03-15 12:00] VITALS: BP 184/57
[2021-03-15] MEDS ORDERED: DECADRON6 MG PO (12:52)
[2021-03-15] MEDS ORDERED: ASA81BEC PO (12:52)
[2021-03-15] MEDS ORDERED: ELIQUIS5 MG PO ×2 (12:52→16:19)
[2021-03-15] MEDS ORDERED: PULMICORT0.5 MG/2 M INH (15:58)
[2021-03-15] MEDS ORDERED: LANTUSSOLASTAR SPRAY (16:00)
[2021-03-15] MEDS ORDERED: HUMALOG100 UNIT/1 SUBQ ×2 (16:01→16:08)
[2021-03-15] MEDS ORDERED: SEMGLEE100 UNIT/1 SUBQ (16:03)
[2021-03-15] MEDS ORDERED: RESTORIL7.5 M1 PO (16:09)
[2021-03-15 16:10] VITALS: BP 184/57
== END 2021-03-15 16:57 | DRG 177 ==
LOC: M.ERS 10:13 → M.TBA-ER 11:54 → M.ORTHSURG 11:54 → M.2W 03-14 07:48
PROVIDERS: Emergency Medicine; Internal Medicine; Internal Medicine Critical Care Medicine; ADMIT Internal Medicine; ATTEND Internal Medicine
PROC: 5A0935A Assistance with Respiratory Ventilation, Less than 24 Consecutive Hours, High Flow/Velocity Cannula (ICD-10-PCS; principal; 2021-03-01)
PROC: XW033E5 Introduction of Remdesivir Anti-infective into Peripheral Vein, Percutaneous Approach, New Technology Group 5 (ICD-10-PCS; principal; 2021-03-01)
PROC: 5A0935A Assistance with Respiratory Ventilation, Less than 24 Consecutive Hours, High Flow/Velocity Cannula (ICD-10-PCS; 2021-03-02)
PROC: 5A0935A Assistance with Respiratory Ventilation, Less than 24 Consecutive Hours, High Flow/Velocity Cannula (ICD-10-PCS; 2021-03-03)
PROC: 5A0935A Assistance with Respiratory Ventilation, Less than 24 Consecutive Hours, High Flow/Velocity Cannula (ICD-10-PCS; 2021-03-06)
PROC: XW033H5 Introduction of Tocilizumab into Peripheral Vein, Percutaneous Approach, New Technology Group 5 (ICD-10-PCS; 2021-03-06)
PROC: 05HB33Z Insertion of Infusion Device into Right Basilic Vein, Percutaneous Approach (ICD-10-PCS; 2021-03-06)
PROC: 5A0955A Assistance with Respiratory Ventilation, Greater than 96 Consecutive Hours, High Flow/Velocity Cannula (ICD-10-PCS; 2021-03-07)
PROC: 5A0935A Assistance with Respiratory Ventilation, Less than 24 Consecutive Hours, High Flow/Velocity Cannula (ICD-10-PCS; 2021-03-13)
PROC: 5A0935A Assistance with Respiratory Ventilation, Less than 24 Consecutive Hours, High Flow/Velocity Cannula (ICD-10-PCS; 2021-03-14)
DX: U07.1 COVID-19 (principal); N17.0 Acute kidney failure with tubular necrosis; J12.82 Pneumonia due to coronavirus disease 2019; J80 Acute respiratory distress syndrome; E44.1 Mild protein-calorie malnutrition; I82.451 Acute embolism and thrombosis of right peroneal vein; I82.441 Acute embolism and thrombosis of right tibial vein; E78.00 Pure hypercholesterolemia, unspecified; E83.51 Hypocalcemia; I25.10 Atherosclerotic heart disease of native coronary artery without angina pectoris; I12.9 Hypertensive chronic kidney disease with stage 1 through stage 4 chronic kidney disease, or unspecified chronic kidney disease; N18.9 Chronic kidney disease, unspecified; E11.22 Type 2 diabetes mellitus with diabetic chronic kidney disease; E78.5 Hyperlipidemia, unspecified; Z66 Do not resuscitate; E11.65 Type 2 diabetes mellitus with hyperglycemia; Z90.49 Acquired absence of other specified parts of digestive tract; Z87.81 Personal history of (healed) traumatic fracture; Z68.27 Body mass index [BMI] 27.0-27.9, adult

== ENCOUNTER 2021-03-15 15:30 | Inpatient (IN) | payer MEDICARE, OTHER ==
[~2021-03-15] VITALS: Ht 172.7 cm; Wt 79.4 kg
[~2021-03-15 15:30] MED LIST changes: +DECADRON6 MG PO; +ELIQUIS5 MG PO
[2021-03-15] MEDS ORDERED: PULMICORT0.5 MG/2 M INH (15:58)
[2021-03-15] MEDS ORDERED: LANTUSSOLASTAR SPRAY (16:00)
[2021-03-15] MEDS ORDERED: HUMALOG100 UNIT/1 SUBQ ×2 (16:01→16:08)
[2021-03-15] MEDS ORDERED: SEMGLEE100 UNIT/1 SUBQ (16:03)
[2021-03-15] MEDS ORDERED: RESTORIL7.5 M1 PO (16:09)
[2021-03-15] MEDS ORDERED: ELIQUIS5 MG PO (16:19)
[2021-03-15 17:00] VITALS: BP 117/78
--- NOTE | 2021-03-15 18:40 | NUR ---
70 YEAR OLD MALE ADMITTED TO ROOM 323 WITH POST COVID DEBILITY. PT IS A/O, VERY PLEASANT. PT ORIENTED TO ROOM, CALL LIGHT AND BED CONTROLS. ADMISSION PROCESS COMPLETED. FALL PRECAUTIONS AND HOURLY ROUNDING IMPLEMENTED.
[2021-03-15 20:26] VITALS: BP 111/66
--- NOTE | 2021-03-16 04:42 | NUR ---
ASSUMED CARE AT 1930. PATIENT RESTED IN BED ALL SHIFT. TURNS SELF. O2 6L HFC. VOIDS PER URINAL. REFUSED COLACE THIS PM. TURNS SELF. NO C/O PAIN. HOURLY ROUNDS CONTINUE. BED ALARM ON. CALL LITE IN REACH. APPEARS SLEEPING.
[2021-03-16 06:31] LABS: HEMATOCRIT 38.6 % (42.0-52.0); HEMOGLOBIN 13.3 gm/dL (14.0-18.0); MCH 30.1 pg (26.0-34.0); MCHC 34.4 g/dL (28.0-37.0); MCV 87.3 fL (80.0-100.0); MPV 9.6 fl. (7.2-11.1); RBC 4.42 mil/uL (4.50-6.00); RDW-CV 14.4 % (10.5-14.5)
[2021-03-16 07:02] LABS: ALBUMIN 2.7 g/dL (3.4-5.0); CALCIUM 7.9 mg/dL (8.5-10.1); CREATININE 0.9 mg/dL (0.6-1.3); POTASSIUM 3.9 mmol/L (3.5-5.1); TOTAL BILIRUBIN 1.6 mg/dL (<0.1-1.0)
[2021-03-16 07:36] VITALS: BP 93/59
--- NOTE | 2021-03-16 11:41 | NUR ---
Nutrition: Pt admitted to rehab with post COVID debility. Eating well on CHO controlled diet. H/o DM, HTN. Labs: ablumin 2.7, prealb 36.2. Meds: vit C, vit D, fish oil. Wt recorded as 175#, down from 185# earlier this month. Will follow wts closely. Otherwise, mild nutrition risk. Will follow weekly on rehab unit.
--- NOTE | 2021-03-16 17:04 | NUR ---
PATIENT COMPLETED THERAPIES THIS SHIFT ORDERED. UP WITH ASSISTANCE; GAIT BELT/WALKER/. PATIENT REMAINS ON 6L HF NC. DRESSING CHANGED PER PROTOCOL TO RIGHT UPPER ARM PICC. NO COMPLAINTS OF PAIN. VOIDING PER URINAL.
[2021-03-16 19:49] VITALS: BP 91/56
--- NOTE | 2021-03-17 05:49 | NUR ---
ASSUMED CARES AT 1920. ALERT AND ORIENTED. PLEASANT. 02 6L NC. DENIED ANY PAIN. USED URINAL. RIGHT DL PICC. SLEPT OFF AND ON. CALL LIGHT IN REACH AND BED ALARM ON.
[2021-03-17 07:49] VITALS: BP 92/63
--- NOTE | 2021-03-17 14:09 | NUR ---
INIITAL ASSESSMENT: PATIENT ADMITTED TO THE [facility] ON 03/15/21 WITH A DIAGNOSIS OF DEBILITY POST COVID. PRIOR TO ADMIT PT RESIDED AT HOME WITH DTR, AND SPOUSE. HOWEVER HIS SPOUSE RECENTLY . PT'S DTR IS SUPPORTIVE AND ABLE TO ASSIST NEEDED AT D/C. PT USED 0 DME PRIOR TO ADMIT. PT HAS 0 HX OF HH OF SNF. PT PLANS TO RETURN HOME AT D/C. CM ORIENTED THE PT TO THE [facility] AND PROCESSES, RESIDENTS RIGHTS INFO, TEAM [facility], AND TO THE ROLE OF CM. CM WILL REMAIN AVAILABLE TO ASSIST AND FOLLOW NEEDED.
--- NOTE | 2021-03-17 16:42 | NUR ---
PATIENT COMPLETED THERAPIES THIS SHIFT ORDERED. 02 5L NC HF REMAINS IN PLACE. UP WITH ASSISTANCE TO BSC, GAIT BELT AND WALKER. PATIENT SITTING IN RECLINER THIS SHIFT. NO COMPLAINTS OF PAIN.
[2021-03-17 19:34] VITALS: BP 99/61
--- NOTE | 2021-03-18 05:39 | NUR ---
ASSUMED CARES AT 1920. ALERT AND ORIENTED. PLEASANT. DENIED ANY PAIN. O2 5L NC. RIGHT DL PICC. USED URINAL. NO ISSUES OVERNIGHT. CALL LIGHT IN REACH AND BED ALARM ON.
[2021-03-18 08:11] LABS: HEMATOCRIT 39.4 % (42.0-52.0); HEMOGLOBIN 13.1 gm/dL (14.0-18.0); MCH 29.3 pg (26.0-34.0); MCHC 33.3 g/dL (28.0-37.0); MCV 87.9 fL (80.0-100.0); MPV 9.7 fl. (7.2-11.1); RBC 4.48 mil/uL (4.50-6.00); RDW-CV 14.3 % (10.5-14.5); WBC 13.2 thou/uL (4.0-11.0)
[2021-03-18 08:15] VITALS: BP 101/64
[2021-03-18 08:20] LABS: CALCIUM 7.9 mg/dL (8.5-10.1); CREATININE 0.9 mg/dL (0.6-1.3); POTASSIUM 4.1 mmol/L (3.5-5.1)
--- NOTE | 2021-03-18 17:43 | NUR ---
PT UP WITH GAIT BELT, WALKER AND STB ASSIST. PICC LINE TO RUE. O2 5L NC. DENIES NEED FOR PAIN MEDICATION. CALL LIGHT IN REACH. FALL PRECAUTIONS IN PLACE.
[2021-03-18 20:11] VITALS: BP 112/47
--- NOTE | 2021-03-19 04:42 | NUR ---
ASSUMED PT CARE AT 1930. PT ALERT AND ORIENTED X4, POLITE AND COOPERATIVE WITH CARES. DENIED PAIN. 02 AT 4L PER NC. PICC ISAURA. USED URINAL OVERNIGHT TO VOID. SLEPT WELL. CALL LIGHT IN REACH, BED ALARM ON FOR SAFETY. HOURLY ROUNDING IN PROGRESS, WILL CONTINUE TO MONITOR.
[2021-03-19 07:45] VITALS: BP 102/63
--- NOTE | 2021-03-19 16:32 | NUR ---
PATIENT COMPLETED THERAPIES THIS SHIFT ORDERED. UP TO RECLINER, GAIT BELT AND WALKER. REMAINS ON 4L NC. NO COMPLAINTS OF PAIN. DR. SANDERS NOTIFIED THIS AM THAT PATIENTS GLUCOSE WAS 66. PER DR. SANDERS LANTUS WAS CHANGED TO HS AND SCHEDULED 10 UNITS OF INSULIN WITH MEALS DC'D. BM NOTED THIS SHIFT, VOIDING PER TOILET AND URINAL.
[2021-03-19 19:00] VITALS: BP 106/52
[2021-03-20 07:51] VITALS: BP 109/55
--- NOTE | 2021-03-20 16:46 | NUR ---
CM SPOKE TO THE PT TO DISCUSS ANY QUESTIONS OR CONCERNS THAT HE MAY FOR THIS WEEKS TEAM CONFRENCE MEETING. PT HAS NO QUESTIONS OR CONCERNS AT THIS TIME. CM WILL REMAIN AVAILABLE TO ASSIST AND FOLLOW NEEDED.
[2021-03-20 19:00] VITALS: BP 90/49
--- NOTE | 2021-03-20 21:20 | NUR ---
SITTING UP IN BED WATCHING TV. CALL LIGHT WITHIN REACH. SNACK PROVIDED. OXYGEN NASAL CANNULA AT 3 LITERS.
--- NOTE | 2021-03-21 05:13 | NUR ---
RESTED QUIETLY. TURNS SELF IN BED. HOURLY ROUNDING IN PROGRESS.
[2021-03-21 05:53] LABS: HEMATOCRIT 36.8 % (42.0-52.0); HEMOGLOBIN 12.5 gm/dL (14.0-18.0); MCH 30.1 pg (26.0-34.0); MCV 88.4 fL (80.0-100.0); MPV 9.2 fl. (7.2-11.1); RBC 4.16 mil/uL (4.50-6.00); RDW-CV 15.1 % (10.5-14.5); WBC 10.7 thou/uL (4.0-11.0)
[2021-03-21 06:03] LABS: CREATININE 0.9 mg/dL (0.6-1.3)
[2021-03-21 07:53] VITALS: BP 118/56
--- NOTE | 2021-03-21 16:21 | NUR ---
PT UP WITH SBA. PT IS ON 3 L02. PT HAD PICC TO RT UPPER ARM WHICH WAS DC'D THIS SHIFT BY RN.PT COMPLETED ALL THERAPY. PT HAD BM THIS SHIFT. PT IS TO BE UP SOFÍA ON 03-22-21 FOR DC ON Friday03-23-21. PT IS RESTING IN CHAIR WITH CALL LIGHT IN REACH.
[2021-03-21 19:40] VITALS: BP 119/75
--- NOTE | 2021-03-22 05:23 | NUR ---
ASSUMED CARES AT 1920. ALERT AND ORIENTED. PLEASANT. O2 3L NC. HS SNACKS GIVEN. USED URINAL. PT TO BE SOFÍA TODAY. SLEPT MOST OF THE NIGHT. CALL LIGHT IN REACH.
[2021-03-22 07:52] VITALS: BP 157/65
[2021-03-22 20:00] VITALS: BP 110/63
[2021-03-23 07:30] VITALS: BP 119/75
[2021-03-23 09:24] VITALS: BP 119/75
[2021-03-23 13:17] VITALS: BP 119/75
[2021-03-23 13:19] VITALS: BP 119/75
--- NOTE | 2021-03-23 16:56 | NUR ---
PLAN FOR THE PT TO D/C HOME TODAY WITH HH. [facility] TO CONTACT THE PT TO ARRANGE A TIME TO VISIT IN 24-48 HRS. CM WILL REMAIN AVAILABLE TO ASSIST AND FOLLOW NEEDED. [facility] PHONE: [phone]
== END 2021-03-23 13:55 | disposition home health service (06) | DRG 947 ==
LOC: M.REH 15:30
PROVIDERS: Internal Medicine; ADMIT Physical Medicine & Rehabilitation; ATTEND Physical Medicine & Rehabilitation
PROC: 5A0935A Assistance with Respiratory Ventilation, Less than 24 Consecutive Hours, High Flow/Velocity Cannula (ICD-10-PCS; principal; 2021-03-15)
PROC: 5A0935A Assistance with Respiratory Ventilation, Less than 24 Consecutive Hours, High Flow/Velocity Cannula (ICD-10-PCS; 2021-03-17)
DX: R53.81 Other malaise (principal); U07.1 COVID-19; J96.01 Acute respiratory failure with hypoxia; J12.82 Pneumonia due to coronavirus disease 2019; E78.5 Hyperlipidemia, unspecified; E11.65 Type 2 diabetes mellitus with hyperglycemia; E78.00 Pure hypercholesterolemia, unspecified; E11.22 Type 2 diabetes mellitus with diabetic chronic kidney disease; D69.6 Thrombocytopenia, unspecified; I12.9 Hypertensive chronic kidney disease with stage 1 through stage 4 chronic kidney disease, or unspecified chronic kidney disease; D64.9 Anemia, unspecified; D72.829 Elevated white blood cell count, unspecified; N18.9 Chronic kidney disease, unspecified; Z79.82 Long term (current) use of aspirin; Z79.899 Other long term (current) drug therapy; Z87.81 Personal history of (healed) traumatic fracture; Z90.49 Acquired absence of other specified parts of digestive tract; Z80.8 Family history of malignant neoplasm of other organs or systems